=== PATIENT | female | born 1990 | race Caucasian/White ===

== ENCOUNTER 2017-09-12 12:20 | Emergency (ER) | payer OTHER ==
[~2017-09-12] VITALS: Ht 160 cm; Wt 108.9 kg
[~2017-09-12 12:20] MED LIST: ANTACID500 MG PO; ATIVAN1 MG PO; CALAMINE LOTIO120 ML TP; CLARITIN10 MG PO; DEPAKOTE500 MG PO; DESYREL100 MG PO; FIORICET 50-301 EACH PO; FLONASE16 G1 BOTH NARES; FLOVENT 44120 INHALA IH; LEXAPRO20 MG PO; MIRALAX17 GM PO; MOTRIN600 MG PO; MULTIVITAMIN1 EAC2 PO; PRILOSEC40 MG PO; PROCTOCREAM-HC30 GM PR; QUASENSE1 EACH PO; REGLAN10 MG PO; STRATTERA40 MG PO; TOPROL XL6.25 MG PO; VENTOLIN HFA18 GM IH; VISTARIL25 MG PO; WELLBUTRIN SR150 MG PO
[2017-09-12 13:50] LABS: HEMATOCRIT 41.3 % (36.0-46.0); HEMOGLOBIN 13.9 G/DL (11.9-15.5); MCH 30.5 PG (29.0-34.0); MCHC 33.7 G/DL (30.0-36.0); MCV 90.8 FL (83-99); PLATELET COUNT 295 K/uL (156-360); RBC DIS.WIDTH-CV 13.2 % (11.8-14.6); RBC DIS.WIDTH-SD 44.4 % (39-53); RED BLOOD COUNT 4.55 M/uL (3.80-5.20); WHITE BLOOD COUNT 5.9 K/uL (4.1-10.2)
[2017-09-12 13:58] LABS: CHLORIDE 104 mEq/L (99-109); POTASSIUM 3.9 mEq/L (3.7-5.4); SODIUM 140 mEq/L (136-147)
[2017-09-12 14:00] LABS: GLUCOSE 84 mg/dL (70-99)
[2017-09-12 14:04] LABS: CREATININE 0.7 mg/dL (0.6-1.3); GFR ESTIMATE (CALCULATED) > 59 mL/min/
[2017-09-12 14:05] LABS: UREA NITROGEN (BUN) 10 mg/dL (9-23)
[2017-09-12 14:14] LABS: QUANTITATIVE HCG < 4.0 MIU/ML
[2017-09-12 16:12] VITALS: BP 121/80
== END 2017-09-12 16:31 | disposition home or self-care (01) ==
LOC: EME 12:20
PROVIDERS: Family Medicine
DX: R40.4 Transient alteration of awareness (principal); E03.9 Hypothyroidism, unspecified; F79 Unspecified intellectual disabilities; Z88.8 Allergy status to other drugs, medicaments and biological substances
CPT/HCPCS: 80048; 81003; 82948; 84702; 85027; 99281; 99283